=== PATIENT | female | born 1950 | race Hispanic/Latino ===

== ENCOUNTER 2025-04-21 14:51 | Inpatient (IN) | payer MEDICARE ==
[~2025-04-21] VITALS: Ht 165.1 cm; Wt 68.0 kg
[~2025-04-21 14:51] MED LIST: ANTIVERT25 MG PO; ASPIR 8181 MG PO; CETIRIZINE HCL10 M1 PO; CLOTRIMAZOLE-BE15 GM TOP; FARXIGA PO; GABAPENTIN300 MG PO; GLIPIZIDE-METF1 EAC2 PO; GLIPIZIDE5 MG PO; HYDROXYCHLOROQ200 MG PO; LEVOTHYROXINE50 MCG PO; LOSARTAN POTAS100 MG PO; MECLIZINE HCL12.5 MG PO; METFORMIN HCL500 MG PO; NAPROXEN250 MG PO; OLMESARTAN MEDO40 MG PO; OLMESARTAN-HCT1 EAC1 PO; OSTEO BI-FLEX1 EAC2 PO; PANTOPRAZOLE SO40 MG PO; PLAQUENIL200 MG PO; PREDNISONE20 MG PO; PROTONIX20 MG PO; SIMVASTATIN40 MG PO; TRAMADOL-ACETAMI1 EA PO; [UNRECOGNIZED DRUG - OTHER] PO
[2025-04-21 17:01] LABS: BASOPHILS % 0.2 % (0.0-1.0); EOSINOPHILS % 0.0 % (0.0-6.0); LYMPHOCYTES % 6.0 % (18.0-39.1); MONOCYTES % 4.4 % (4.4-11.3); NEUTROPHILS % 89.1 % (38.7-80.0); RED CELL DISTRIBUTION WIDTH 12.6 % (11.7-14.4)
[2025-04-21] MEDS: ONDANSETRON HCL INJ 2MG/ML 2ML 2 MG/ML VIAL IV STA (17:03)
[2025-04-21] MEDS: CEFTRIAXONE 2 GM in SODIUM CHLORIDE 0.9% 100 ML IV ONE (17:04)
[2025-04-21] MEDS: SODIUM CHLORIDE 0.9% 1000ML 1,000 ML IV ONE (17:04)
[2025-04-21] MEDS: ACETAMINOPHEN 325 MG TAB PO ONE (17:05)
[2025-04-21 17:18] LABS: INR 0.98
[2025-04-21 17:27] LABS: EST GLOMERULAR FILTRATION RATE 74.0 ML/MIN (>=60)
[2025-04-21] MEDS ORDERED: SODIUM CHLORIDE 0.9% 1000ML 2,040 ML IV SCH (17:45)
[2025-04-21] MEDS ORDERED: SODIUM CHLORIDE FLUSH 10 ML SYR INJ PRN (17:45)
[2025-04-21] MEDS ORDERED: ONDANSETRON HCL INJ 2MG/ML 2ML 2 MG/ML VIAL IV PRN (17:45)
[2025-04-21 18:16] LABS: LEUKOCYTE ESTERASE ,URINE NEGATIVE (NEGATIVE)
[2025-04-21 18:17] LABS: PROTEIN,URINE DIPSTICK 2+ (NEGATIVE); URINE UROBILINOGEN 0.2 mg/dL (0.2 - 1)
[2025-04-21 18:55] LABS: CORONAVIRUS COVID-19 AG NEGATIVE (NEGATIVE)
[2025-04-21 19:01] LABS: EPITHELIAL CELLS,URINE MODERATE /LPF; WBC,URINE (MAN) >50 /HPF (0-5)
[2025-04-21 20:55] VITALS: PULSE 99; RESP 17; TEMP 99.9
[2025-04-21 21:00] VITALS: BP 141/65; PULSE 99; RESP 18; TEMP 99.2; O2SAT 100
[2025-04-22 07:27] LABS: BASOPHILS % 0.4 % (0.0-1.0); EOSINOPHILS % 0.2 % (0.0-6.0); LYMPHOCYTES % 14.7 % (18.0-39.1); MONOCYTES % 7.3 % (4.4-11.3); NEUTROPHILS % 77.2 % (38.7-80.0); RED CELL DISTRIBUTION WIDTH 12.6 % (11.7-14.4)
[2025-04-22 07:51] LABS: EST GLOMERULAR FILTRATION RATE 92.0 ML/MIN (>=60)
[2025-04-22 08:00] VITALS: BP 149/68; PULSE 97; RESP 17; TEMP 99.2; O2SAT 98
[2025-04-22 09:00] VITALS: BP 149/68; PULSE 97; RESP 17; TEMP 99.2; O2SAT 98
[2025-04-22] MEDS: ACETAMINOPHEN 325 MG TAB PO PRN (11:54)
[2025-04-22 12:00] VITALS: BP 154/68; PULSE 97; RESP 17; TEMP 99.8; O2SAT 96
[2025-04-22] MEDS: ASPIRIN 81 MG CHEW TAB PO SCH (14:57)
[2025-04-22 16:00] VITALS: BP 142/66; PULSE 86; RESP 17; TEMP 99.3; O2SAT 96
[2025-04-22] MEDS: GLIPIZIDE 5 MG TAB PO SCH (17:17)
[2025-04-22] MEDS: METFORMIN HCL 500 MG TAB PO SCH (17:17)
[2025-04-22 20:00] VITALS: BP 157/70; PULSE 90; RESP 18; TEMP 98.2; O2SAT 98
[2025-04-22] MEDS: SIMVASTATIN 40 MG TAB PO SCH (20:40)
[2025-04-22 21:00] VITALS: BP 157/70; PULSE 90; RESP 18; TEMP 98.2; O2SAT 98
[2025-04-23] MEDS: LEVOTHYROXINE SODIUM 25 MCG TABLET PO SCH (05:53)
[2025-04-23 07:16] VITALS: BP 166/76; PULSE 85; RESP 18; TEMP 98.8; O2SAT 99
[2025-04-23] MEDS: PANTOPRAZOLE SOD 40 MG TABEC PO SCH (08:50)
[2025-04-23] MEDS: LOSARTAN POTASSIUM 100 MG TAB PO SCH (08:50)
[2025-04-23 08:59] VITALS: BP 166/76; PULSE 85; RESP 18; TEMP 98.8; O2SAT 99
[2025-04-23] MEDS: HYDROXYCHLOROQUINE SULFATE 200 MG TAB PO SCH (11:00)
[2025-04-23 11:13] VITALS: BP 153/68; PULSE 93; RESP 18; TEMP 98.3; O2SAT 100
[2025-04-23 15:29] VITALS: BP 140/75; PULSE 94; RESP 20; TEMP 98.7; O2SAT 95
[2025-04-23 20:00] VITALS: BP 160/77; PULSE 85; RESP 18; TEMP 97.7; O2SAT 100
[2025-04-23 21:09] VITALS: BP 160/77; PULSE 85; RESP 18; TEMP 97.7; O2SAT 100
[2025-04-24] VITALS (9 sets, daily range): BP systolic 129–157; BP diastolic 64–91; PULSE 78–91; RESP 18–20; TEMP 97.7–98.8; O2SAT 97–100
[2025-04-24] MEDS: SODIUM CHLORIDE 0.9% 250ML 250 ML ONE (10:17)
[2025-04-24] MEDS: AMLODIPINE BESYLATE 5 MG TAB PO SCH (22:13)
[2025-04-24 22:36] LABS: BASOPHILS % 0.6 % (0.0-1.0); EOSINOPHILS % 2.8 % (0.0-6.0); LYMPHOCYTES % 42.9 % (18.0-39.1); MONOCYTES % 10.2 % (4.4-11.3); NEUTROPHILS % 42.9 % (38.7-80.0); RED CELL DISTRIBUTION WIDTH 12.5 % (11.7-14.4)
[2025-04-24 22:52] LABS: EST GLOMERULAR FILTRATION RATE 65.0 ML/MIN (>=60)
[2025-04-25 08:00] VITALS: BP 144/64; PULSE 82; RESP 17; TEMP 98; O2SAT 97
[2025-04-25 08:18] LABS: BASOPHILS % 0.7 % (0.0-1.0); EOSINOPHILS % 4.1 % (0.0-6.0); LYMPHOCYTES % 41.6 % (18.0-39.1); MONOCYTES % 9.7 % (4.4-11.3); NEUTROPHILS % 42.4 % (38.7-80.0); RED CELL DISTRIBUTION WIDTH 12.4 % (11.7-14.4)
[2025-04-25 08:56] LABS: EST GLOMERULAR FILTRATION RATE 88.0 ML/MIN (>=60)
[2025-04-25 09:00] VITALS: BP 144/64; PULSE 82; RESP 17; TEMP 98; O2SAT 97
[2025-04-25 10:56] VITALS: BP 144/64
[2025-04-25] MEDS ORDERED: LEVOTHYROXINE50 MCG PO (11:31)
[2025-04-25] MEDS ORDERED: NORVASC5 MG PO (11:31)
[2025-04-25] MEDS ORDERED: ASPIRIN CHEW81 MG PO (11:31)
[2025-04-25] MEDS ORDERED: SIMVASTATIN40 MG PO (11:31)
== END 2025-04-25 12:20 | disposition home or self-care (01) | DRG 690 ==
LOC: ER 16:28 → ERHOLD 17:40 → MED/SURG3 21:15 → OBSVTOIN 04-23 13:01
PROVIDERS: ADMIT Internal Medicine; ATTEND Internal Medicine
DX: N39.0 Urinary tract infection, site not specified (principal); E87.20 Acidosis, unspecified; E87.1 Hypo-osmolality and hyponatremia; R65.10 Systemic inflammatory response syndrome (SIRS) of non-infectious origin without acute organ dysfunction; I10 Essential (primary) hypertension; E78.5 Hyperlipidemia, unspecified; E11.9 Type 2 diabetes mellitus without complications; M19.90 Unspecified osteoarthritis, unspecified site; R19.7 Diarrhea, unspecified; M79.10 Myalgia, unspecified site; R11.2 Nausea with vomiting, unspecified; Z79.82 Long term (current) use of aspirin; Z79.890 Hormone replacement therapy; Z79.84 Long term (current) use of oral hypoglycemic drugs; Z11.52 Encounter for screening for COVID-19
CPT/HCPCS: 36415; 71045; 80048; 80053; 81001; 82948; 83605; 85025; 85610; 85730; 87040; 87086; 93005; 99284; G0378; J0696; J2405; J2470; J7030; J7050